=== PATIENT | male | born 1975 | race Caucasian/White ===

== ENCOUNTER 2022-10-30 14:55 | Emergency (ER) | payer BC ==
[~2022-10-30] VITALS: Ht 165.1 cm; Wt 98.9 kg
[2022-10-30] MEDS ORDERED: VITAMIN D3125 MC1 PO (15:19)
[2022-10-30] MEDS ORDERED: PANTOPRAZOLE SO40 MG PO (15:19)
[2022-10-30] MEDS ORDERED: LITHIUM CARBON600 MG PO (15:19)
[2022-10-30] MEDS ORDERED: SIMVASTATIN20 MG PO (15:20)
[2022-10-30] MEDS ORDERED: CARVEDILOL6.25 MG PO (15:20)
[2022-10-30] MEDS ORDERED: BUPROPION HYDR150 M1 PO (15:20)
[2022-10-30] MEDS ORDERED: LURASIDONE HCL80 MG PO (15:20)
[2022-10-30] MEDS ORDERED: HYDROCHLOROTH12.5 M2 PO (15:21)
[2022-10-30] MEDS ORDERED: LAMOTRIGINE200 MG PO (15:21)
== END 2022-10-30 17:00 | disposition home or self-care (01) ==
LOC: ED 14:55
DX: S60.011A Contusion of right thumb without damage to nail, initial encounter (principal); F32.A Depression, unspecified; Z98.890 Other specified postprocedural states; W22.8XXA Striking against or struck by other objects, initial encounter; Y93.89 Activity, other specified; Y92.89 Other specified places as the place of occurrence of the external cause; Y99.8 Other external cause status

== ENCOUNTER → 2023-05-22 | Outpatient (CLI) | payer BC ==
[~2023-05-22] MED LIST: BUPROPION HYDR150 M1 PO; CARVEDILOL6.25 MG PO; HYDROCHLOROTH12.5 M2 PO; LAMOTRIGINE200 MG PO; LITHIUM CARBON600 MG PO; LURASIDONE HCL80 MG PO; PANTOPRAZOLE SO40 MG PO; SIMVASTATIN20 MG PO; VITAMIN D3125 MC1 PO
[2023-05-22 13:41] LABS: BASO % 0.4 % (0.0-1.0); EOS # 0.1 10*3/uL (0.0-0.4); EOS % 1.7 % (1.0-4.0); HEMATOCRIT 43.5 % (42.0-52.0); LYMPH # 2.1 10*3/uL (1.3-4.4); LYMPH % 29.2 % (27.0-41.0); MEAN CELL VOLUME 92.9 fl (80.0-94.0); MEAN CORPUSCULAR HGB 30.1 pg (27.0-31.0); MEAN CORPUSCULAR HGB CONC 32.4 g/dl (33.0-37.0); MEAN PLATELET VOLUME 9.1 fl (9.6-12.3); MONO # 0.4 10*3/uL (0.1-1.0); MONO % 5.5 % (3.0-9.0); NEUT # 4.5 10*3/uL (2.3-7.9); NEUT % 63.1 % (47.0-73.0); PLATELET COUNT AUTOMATED 282 10*3/uL (130-400); RED BLOOD COUNT 4.68 10*6/uL (4.50-5.90); RED CELL DISTRI WIDTH 13.2 % (0-14.5); WHITE BLOOD COUNT 7.1 10*3/uL (4.8-10.8)
[2023-05-22 14:16] LABS: POTASSIUM 3.7 mmol/L (3.4-5.1)
[2023-05-22 14:18] LABS: VITAMIN D, 25-HYDROXY 34.5 ng/mL (30-100)
== END | disposition home or self-care (01) ==
LOC: LAB 13:15
PROVIDERS: ATTEND Internal Medicine Nephrology
DX: N18.2 Chronic kidney disease, stage 2 (mild) (principal); N25.81 Secondary hyperparathyroidism of renal origin

== ENCOUNTER → 2023-11-14 | Outpatient (CLI) | payer SELFPAY ==
[2023-11-14 14:24] LABS: BASO % 0.3 % (0.0-1.0); EOS # 0.1 10*3/uL (0.0-0.4); EOS % 0.9 % (1.0-4.0); HEMATOCRIT 47.1 % (42.0-52.0); LYMPH # 2.8 10*3/uL (1.3-4.4); LYMPH % 24.5 % (27.0-41.0); MEAN CORPUSCULAR HGB 29.9 pg (27.0-31.0); MEAN CORPUSCULAR HGB CONC 31.8 g/dl (33.0-37.0); MEAN PLATELET VOLUME 9.2 fl (9.6-12.3); MONO # 0.9 10*3/uL (0.1-1.0); MONO % 7.4 % (3.0-9.0); NEUT # 7.7 10*3/uL (2.3-7.9); NEUT % 66.4 % (47.0-73.0); PLATELET COUNT AUTOMATED 326 10*3/uL (130-400); RED BLOOD COUNT 5.01 10*6/uL (4.50-5.90); RED CELL DISTRI WIDTH 12.6 % (0-14.5); WHITE BLOOD COUNT 11.6 10*3/uL (4.8-10.8)
[2023-11-14 14:27] LABS: BILIRUBIN Negative (Negative); BLOOD Negative (Negative); CLARITY Clear (Clear); COLOR Yellow (Yellow); GLUCOSE Negative (Negative); KETONE Negative (Negative); LEUKO ESTERASE Negative (Negative); NITRITE Negative (Negative); PH 5.5 (4.5-8.0); SPECIFIC GRAVITY 1.015 (1.001-1.030); UROBILINOGEN 0.2 E.U./dl (0.0-1.0)
[2023-11-14 14:36] LABS: URINE CREATININE RANDOM 102.16 mg/dL
[2023-11-14 14:57] LABS: BUN 15 mg/dl (9-23); CHLORIDE 103 mmol/L (98-107); POTASSIUM 3.6 mmol/L (3.4-5.1)
[2023-11-14 14:59] LABS: VITAMIN D, 25-HYDROXY 33.1 ng/mL (30-100)
== END | disposition home or self-care (01) ==
LOC: LAB 13:43
PROVIDERS: ATTEND Internal Medicine Nephrology
DX: N18.30 Chronic kidney disease, stage 3 unspecified (principal); E55.9 Vitamin D deficiency, unspecified; D63.1 Anemia in chronic kidney disease